=== PATIENT | female | born 1980 | race Caucasian/White ===

== ENCOUNTER 2016-12-12 14:59 | Emergency (ER) | payer OTHER, BC, MEDICAID ==
[~2016-12-12] VITALS: Ht 172.7 cm; Wt 75.3 kg
[~2016-12-12 14:59] MED LIST: ALLEGRA60 MG PO; CEPHALEXIN500 MG PO; CYMBALTA60 MG PO; DULOXETINE60 MG PO; FLEXERIL5 MG PO; FLUOXETINE10 MG; IBUPROFEN800 MG PO; IMODIUM 2MG. CAP2 MG PO; KEFLEX500 M1 PO; LORTAB 5/3251 TAB PO; LORTAB 500 MG-71 TAB PO; NAPROSYN 500MG500 MG PO; NAPROXEN SODIU500 MG PO; PHENERGAN25 M3 PO; PREDNISONE 20MG20 MG PO; TESSALON PERLE100 MG PO; VICODIN 5/500 T1 TAB PO; ZITHROMAX Z PA250 MG PO; ZITHROMAX Z-PA250 M1 PO; ZOFRAN ODT4 MG PO
[2016-12-12] MEDS ORDERED: DULOXETINE60 MG PO (15:31)
--- NOTE | 2016-12-12 15:50 | RADIOLOGY REPORT PS360 ---
HAND-RT 3 VIEWS HISTORY: Pain following injury CAUGHT IN A LADDER ORDERING PHYSICIAN: ANDRE WRIGHT APRN PATIENT AGE: 36 years COMPARISON: None FINDINGS: There is a nondisplaced transverse fracture involving the proximal aspect of the distal phalanx of the fifth finger with no significant angulation. Otherwise negative. IMPRESSION: Nondisplaced fracture distal phalanx fifth finger
[2016-12-12] MEDS ORDERED: IBUPROFEN800 MG PO (16:42)
--- NOTE | 2016-12-12 16:46 | Urgent Treatment Center Report ---
History of Present Issue Date/Time Seen by Provider 12/12/16 1635 Visit Reason Pt arrived:Walked Presenting Problem:RT PINKY FINGER CAUGHT IN A LADDER. COMPLAINS OF PAIN IN THE TIP OF HER FINGER. BRUISING IS NOTED AND LIMITED ROM IN THE FINGER. Location if Accident:Work Onset of symptoms date/time:12/12/16 or onset unknown for: Have you (or family members/close friends) recently traveled outside the [place]? N If Yes, where/when: Have you had exposure to infectious disease within the past month? TB? Other? Specify: Patient states that she was at work and got the tip of her finger caught in the Ladder. State that she is having pain in the tip of her finger in the first joint.State that she immediately noticed the finger turned blue and began to swell and had pain with movement. States that she felt sick at her stomach and she knew she needed to come and get checked ALLERGIES Coded Allergies: Penicillins (04/01/16) caffeine (04/01/16) codeine (04/01/16) Home Medications Reported Medications DULOXETINE HCL (Duloxetine) 60 MG PO QHS #30 History Medical History General CAD? No Angina: No [place]: No Hypertension? No Hyperlipidemia? No CHF? No DVT? No PE? No COPD? No Asthma? No Anemia? Yes GERD? No Gastric ulcers? No GI Bleed? No Hernia? No Thyroid Problems? No Hypothyroidism? No CVA? No Seizures? No Diabetes? No Insulin Dependent: No Insulin Pump: No Home FSBS? No Renal Insuffiency? No UTI? Yes Stones? Yes BPH? No GB Disease: No Nephritic Syndrome? No Asplenia? No Hepatitis? No Sickle Cell Disease? No Arthritis? Yes Migraines? No Cataracts? No Glaucoma? No MRSA? No HIV? No TB? No Anxiety? No Depression? No Cancer? No More? No Immunization HX DT/Tetanus 07/06/11 Flu NEVER Pneumonia NEVER Surgical Hx Previous Surgery?Y EXCISION RT BREAST MASSy EXCISION LT NECK GLAND D&C X 2 Tubal Ligation STITCHES TO UPPER LIP bartholin cyst BOTH SIDES KIDNEY STONE Family History Family HX Diabetes No CAD Yes Hypertension Yes Hyperlipidemia Yes Cancer Yes TB No Social History Smoking Hx Smoker: Current Every Day Smoker Tobacco: Yes Type Cigarettes Packs/day < 1 Pack Alcohol Alcohol: No Review of Systems All Other Systems Reviewed and Negative Comment Pain swelling and bruising in tip of right pinky finger after getting it caught in ladder at work Physical Exam Vital Signs Vital Signs Date Time Temp Pulse Resp B/P Pulse O2 O2 Flow FiO2 Ox Delivery Rate 12/12 1528 98.0 89 18 111/65 98 General Appearance normal appearance, WD/WN, no apparent distress, mild distress Respiratory Status Yes: trachea midline, chest symmetrical, non tender chest. No: respiratory distress. 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 No Results/Orders Current Medication Orders Sig/Ankit Start time Last Medication Dose Route Stop Time Status Admin Ibuprofen 800 MG ONCE ONE 12/12 1645 AC 12/12 PO 12/12 1646 1633 Ibuprofen 0 .STK-MED ONE 12/12 1630 DC PO Orders Procedure Date/time Status STABILIZE JOINT 12/12 1639 Active XRAY/CT/US XRAY/CT/US XR interpretation by discussed w/radiologist Xray Results Fracture tip of fifth digit Departure Departure Time of Disposition 1639 Disposition DC Home or Self Care(routine) Clinical Impression Primary Impression: Finger fracture Qualifiers: Encounter type: initial encounter Finger: little finger Fracture type: closed Phalanx: distal Fracture alignment: nondisplaced Laterality: right Qualified Code: S62.666A - Nondisplaced fracture of distal phalanx of right little finger, initial encounter for closed fracture Condition STABLE Referrals Shabbir Bee MD (Family): Tomorrow-Call Office Call office for appointment and follow up visit for evaluation and referral to Orthopedics after seen by family doctor Patient Instructions DI for Finger Fracture, Finger Fracture Additional Instructions *RICE, Rest the extremity, Ice 15-20 minutes 3-4 times daily, Compress- wear the everton wrap as discussed as much as possible to help reduce swelling and pain, Elevate the extremity when at rest *Everton wrap is for support and help control swelling, use it except in the shower. Be sure that is not to tight but not to loose either *Elevate when resting *Ibuprofen 600-800mg every 6-8 hours as needed for pain an inflammation. If need something more can take Tylenol in between doses of Ibuprofen to help Immediately follow up for new or worsening of symptoms, or no noticeable improvement over the next 3-[address] Follow up with Dr Bee for Referral to Orthopedics if needed Return if needed Discharge Counseling Counseled pt/family regarding diagnosis, test results, medications/RX, home care, follow up needs Prescriptions Current Visit Scripts Ibuprofen (Ibuprofen 800MG) 800 MG PO QIDP PRN pain #30 TAB at 8834
[2016-12-12 17:00] VITALS: BP 111/65
== END 2016-12-12 17:06 | disposition home or self-care (01) ==
LOC: UTC 14:59
PROC: 2W3JX1Z Immobilization of Right Finger using Splint (ICD-10-PCS; principal; 2016-12-12)
DX: S62.666A Nondisplaced fracture of distal phalanx of right little finger, initial encounter for closed fracture (principal); W23.0XXA Caught, crushed, jammed, or pinched between moving objects, initial encounter; Y92.69 Other specified industrial and construction area as the place of occurrence of the external cause; Z72.0 Tobacco use

== ENCOUNTER 2017-01-06 12:05 | Emergency (ER) | payer BC, MEDICAID ==
[~2017-01-06] VITALS: Ht 172.7 cm; Wt 74.8 kg
--- OUTSIDE RECORDS SUMMARY | 2017-01-06 12:13 | External Medical Summary Rpt | CCD ---
Author Author , KELLEE GOODSON Address Unknown Phone [email or web address] Care Team Providers Care Beadworker Name Role Phone [facility] Unavailable [email or web address] ENZO ALANIZ MD, Unavailable Unavailable ENZO ALANIZ MD [facility] Unavailable Unavailable INC, [facility] PURNIMA FELTON Unavailable Unavailable JYANE GODOY Unavailable Unavailable [facility], Unavailable Unavailable PLL[facility], [facility] SOTINGEANU, Unavailable Unavailable S[facility] Purpose Continuity of Care Document - 06-29-2012 through 2016 Problems Code Diagnosis DOS Provider Status [id number] SPONDYLOSIS 08-06-2016 [facility] W/O ORTHOPAEDIC MYELOPATH/R S [facility] ADICULPATHY LS RGN M533 SACROCOCCYG 08-06-2016 [facility] EAL ORTHOPAEDIC DISORDERS S [facility] NEC M5416 RADICULOPAT 08-06-2016 [facility] HY LUMBAR ORTHOPAEDIC REGION S [facility] M545 LOW BACK 04-17-2016 [facility] PAIN ORTHOPAEDIC S PSC E860 DEHYDRATION 04-01-2016 [facility] K529 NONINFECTIV 04-01-2016 [facility] IT[facility] & COLITIS UNS Z720 TOBACCO USE 04-01-2016 [facility] INC 461.9 461.9 ACUTE 06-29-2012 [place] SINUSITIS [facility] 477.8 477.8 06-29-2012 [place] ALLERGIC [facility] NEC E86.0 DEHYDRATION K52.9 NONINFECTIV E GASTROENTER ITIS AND COLITIS, UNSPECIFIED N20.0 CALCULUS OF KIDNEY R07.89 OTHER CHEST PAIN R20.2 PARESTHESIA OF SKIN S00.93XA CONTUSION OF UNSPECIFIED PART OF HEAD, INITIAL ENCOUNTER S86.009A UNSP INJURY OF UNSPECIFIED ACHILLES TENDON, INIT ENCNTR W19.XXXA UNSPECIFIED FALL, INITIAL ENCOUNTER Allergies, Adverse Reactions, Alerts Type Drug Allergy Propensity to adverse reactions to drug Adverse Reaction to Substance Substance Reaction Severity Penicillin I-RASH, ABDOMINAL Intermediate CRAMPING Codeine NA-HALLUCINATIONS Severe Caffeine "PARALYZES ME" Severe Medications Na ND Rx Da Fi Fi Am Da Di Ph RX Ph St me C No te ll ll ou ys ag ar # ys at rm s nt no ma ic us Or Da si cy ia de te s n re d DU 57 08 09 30 30 00 EA Ac LO 23 -2 -[address] ti XE 70 8- 2- 00 00 SI ve TI 01 20 20 49 DE NE 99 17 17 93 9 55 PH HC AR L MA DR CY 60 OF CY MG NT HI CA AN P A IN C ME 50 07 08 14 7 00 EA Ac TR 11 -3 -[address] ti ON 10 - 00 SI ve ID 33 20 20 49 DE AZ 40 17 17 59 OL 2 09 PH E AR 50 MA 0 CY MG OF TA CY BL NT ET HI AN A IN C TR 16 05 06 60 30 00 EA Ac AM 71 -3 -[address] ti AD 40 1- 3- 00 00 SI ve OL 48 20 20 48 DE 10 17 17 95 HC 2 05 PH L AR 50 MA CY MG OF TA CY BL NT ET HI AN A IN C VE 00 03 04 18 18 00 EA Ac NT 17 -2 -[address] ti OL 30 4- 8- 00 00 SI ve IN 68 20 20 48 DE 22 17 17 09 HF 0 97 PH A AR 90 MA CY MC G OF IN CY LINDQUIST NT LE HI R AN A IN C TX 00 03 04 18 6 00 EA Ac OM 60 -2 -[address] ti ET 31 4- 8- 00 00 SI ve LINDQUIST 58 20 20 0 48 DE ZI 65 17 17 09 NE 8 96 PH -D AR M MA SY CY RU P OF CY NT HI AN A IN C TX 65 01 02 20 5 00 EA Ac OM 16 -0 -[address] ti ET 20 9- 3- 00 00 SI ve LINDQUIST 52 20 20 47 DE ZI 11 17 17 16 NE 1 50 PH AR 25 MA CY MG OF TA CY BL NT ET HI AN A IN C Vital Signs 06-29-2012 18:19 Name Value Interpretat Reference Comment ion Range BP 46 mm[Hg] Diastolic BP Systolic 103 mm[Hg] Heart 94 /min Rate/Pulse O2% 98 % Respiratory 20 /min Rate 06-29-2012 17:34 Name Value Interpretat Reference Comment ion Range BP 69 mm[Hg] Diastolic BP Systolic 110 mm[Hg] Heart 84 /min Rate/Pulse O2% 99 % Respiratory 20 /min Rate Results Labs Lab Lab Date Result Refere Interp Status Commen Order Detail nces retati t Range on CHLAMYDIA AND GONORRHEA TESTING (06-29-2014 13:30) Chlamyd NEGATIV complet ia 015 E ed trachom 13:30 atis rRNA [Presen ce] in Unspeci fied specime n by Probe & target amplifi cation method Neisser POSITIV complet ia 015 E ed gonorrh 13:30 oeae rRNA [Presen ce] in Unspeci fied specime n by Probe & target amplifi cation method Treponema pallidum IgG Ab [Presence] in Serum by Immunoassay (06-29-2014 13:30) Trepone NON-MEERA complet ma 015 CTIVE ed pallidu 13:30 m IgG Ab [Presen ce] in Serum by Immunoa ssay CHLAMYDIA AND GONORRHEA TESTING (06-29-2014 13:30) COLLECT E complet OR 015 [facility] ed 13:30 , RN ETHNICI WHITE, complet TY 015 NON-HIS ed 13:30 PANIC KIT 2014-12 complet EXPIRAT 015 -31 ed ION 13:30 DATE SYMPTOM YES complet S 015 ed 13:30 REASON SEX complet FOR 015 PARTNER ed REQUEST 13:30 REFERRA L SPECIME URINE complet N 015 ed SOURCE 13:30 PREGNAN NO complet T 015 ed 13:30 CHART 402-17- complet NUMBER [id number] ed 13:30 Chlamyd Pending complet ia 015 ed trachom 13:30 atis rRNA [Presen ce] in Unspeci fied specime n by Probe & target amplifi cation method Neisser Pending complet ia 015 ed gonorrh 13:30 oeae rRNA [Presen ce] in Unspeci fied specime n by Probe & target amplifi cation method Treponema pallidum IgG Ab [Presence] in Serum by Immunoassay (06-29-2014 13:30) COLLECT E complet OR 015 SORAIDAICHER ed 13:30 , RN ETHNICI WHITE complet TY 015 NON-HIS ed 13:30 PANIC PURPOSE OTHER complet OF 015 ed EXAM 13:30 SPECIME BLOOD complet N 015 ed SOURCE 13:30 CHART 402-17- complet NUMBER [id number] ed 13:30 Trepone Pending complet ma 015 ed pallidu 13:30 m IgG Ab [Presen ce] in Serum by Immunoa ssay Procedures Procedure DOS Code Location Performer [place] NJX 38839 [facility] JAYNE DX/THER 7 SBST ORTHOPAED INTRLMNR ICS PSC LMBR/SAC W/IMG GDN NJX 34453 [facility] JAYNE DX/THER 7 SBST ORTHOPAED INTRLMNR ICS PSC LMBR/SAC W/IMG GDN NJX 65769 [facility] JAYNE DX/THER 7 SBST ORTHOPAED INTRLMNR ICS PSC LMBR/[place] [address] MORGAN GODOY JOINT 7 ARTHRGRPH ORTHOPAED Y&/ANES/S ICS PSC TEROID W/LISETTE MRI 02909 MORGAN FELTON SPINAL 7 CANAL ORTHOPAED LUMBAR ICS PSC W/O CONTRAST MATERIAL MRI 10755 MORGAN WHITMANT PELVIS 7 W/O ORTHOPA[place] [address] [facility] FRANK LIPASE 7 [place] [address] ZAC FRANK INFUSION 7 MEM [facility] THERAPY/P INC INC ROPHYLAXI S /DX 1ST TO 1 HR THERAPEUT 85241 [facility] FRANK IC 7 MEM H[facility] INJECTION INC INC IV PUSH EACH NEW DRUG BLOOD 65917 [facility] FRANK COUNT 7 MEM [facility] COMPLETE INC INC AUTO&AUTO DIFRNTL WBC COMPREHEN 49641 [facility] SIVE 7 MEM H[facility] METABOLIC INC INC [place] [address]Lisa FRANK AMYLASE 7 MEM H[facility] INC INC Encounters Encounter Start End Date Code Location Performer Type Date OFFICE 94245 [facility] 7 7 [place] T VISIT ORTHOPAED 15 IC MINUTES OFFICE 91004 [facility] 7 7 [place] VISIT ORTHOPAED 15 IC MINUTES EMERGENCY 76459 ZAC 7 7 [facility] T VISIT LOW/MODER SEVERITY EMERGENCY 40602 [facility] PHYSICIAN U VISIT S, PLLC HIGH SEVERITY& THREAT [facility] ZAC - 7 7 [facility] OUTPATIEN INC T Emergency JUDY ALANIZ MD (ER) 3 16:56 3 18:20 [facility]
--- OUTSIDE RECORDS SUMMARY | 2017-01-06 12:13 | External Medical Summary Rpt | CCD ---
Author Author , KELLEE GOODSON Address Unknown Phone [email or web address] Care Team Providers Care Senior User Experience Architect Name Role Phone [facility] Unavailable [facility], [facility] Unavailable Unavailable INC, [facility] FELTON, FELTON Unavailable Unavailable JAYNE, JAYNE Unavailable Unavailable [facility], Unavailable Unavailable PLLC, [facility] SOTINGEANU, Unavailable [facility]available [facility] Purpose Continuity of Care Document - 04-01-2016 through 2016 Problems Code Diagnosis DOS Provider Status [id number] SPONDYLOSIS 08-06-2016 [facility] W/O ORTHOPAEDIC MYELOPATH/R S PSC ADICULPATHY LS RGN M533 SACROCOCCYG 08-06-2016 [facility] EAL ORTHOPAEDIC DISORDERS S PSC NEC M5416 RADICULOPAT 08-06-2016 [facility] HY LUMBAR ORTHOPAEDIC REGION S PSC M545 LOW BACK 04-17-2016 [facility] PAIN ORTHOPAEDIC S PSC E860 DEHYDRATION 04-01-2016 [facility] K529 NONINFECTIV 04-01-2016 [facility] PHYSICIANS, GASTROENTER [facility] ITIS & COLITIS UNS Z720 TOBACCO USE 04-01-2016 [facility] INC Medications Na ND Rx Da Fi Fi [...] -[address] ti ON 10 1- - 00 00 SI ve ID 33 20 20 [...] LE HI R AN A IN C KS 00 03 04 18 6 00 EA Ac OM 60 -2 -[address] ti ET 31 4- 8- 00 00 SI ve LINDQUIST 58 20 20 0 48 DE ZI 65 17 17 09 NE 8 96 PH -D AR M MA SY CY RU P OF CY NT HI AN A IN C KS 65 01 02 20 5 00 EA Ac OM 16 -0 -[address] ti ET 20 9- 3- 00 00 SI ve LINDQUIST 52 20 20 47 DE ZI 11 17 17 16 NE 1 50 PH AR 25 MA CY MG OF TA CY BL NT ET HI AN A IN C Procedures Procedure DOS Code [place]X 13030 [facility] JAYNE DX/THER 7 SBST ORTHOPAED INTRLMNR ICS PSC LMBR/SAC W/IMG [place]DN NJX 88563 [facility] JAYNE DX/THER 7 SBST ORTHOPAED INTRLMNR ICS PSC LMBR/SAC W/IMG GDN NJX 79515 MORGAN JAYNE DX/THER 7 SBST ORTHOPAED INTRLMNR ICS PSC LMBR/[place] [address] MORGAN GODOY JOINT 7 ARTHRGRPH ORTHOPAED Y&/ANES/S ICS PSC TEROID W/LISETTE MRI 02765 MORGAN FELTON SPINAL 7 CANAL ORTHOPAED LUMBAR ICS PSC W/O CONTRAST MATERIAL MRI 06389 MORGAN WHITMANT PELVIS 7 W/O ORTHOPAED [place] [address] ZAC FRANK LIPASE 7 [place] [address] ZAC FRANK AMYLASE 7 MEM HOS[facility] INC INC COMPREHEN 05922 ZAC ZAC SIVE 7 MEM HOSP MEM [facility]OS[facility] METABOLIC INC INC PANEL BLOOD 95099 ZAC FRANK COUNT 7 MEM HOSP MEM [facility]OS[facility] COMPLETE INC INC AUTO&[place] [address] ZAC ZAC INFUSION 7 [facility] THERAPY/P INC INC ROPHYLAXI S /DX 1ST TO 1 HR THERAPEUT 00068 ZAC ZAC IC 7 MEM HOSP MEM [facility] INJECTION INC INC IV PUSH EACH NEW DRUG Encounters Encounter Start End Date Code Location Performer Type Date OFFICE 98928 [facility] 7 7 [place] T VISIT ORTHOPAED 15 IC MINUTES OFFICE 88847 [facility] 7 7 [place] T VISIT ORTHOPAED 15 IC MINUTES EMERGENCY 40333 ZAC 7 7 [facility] DEPARTMEN INC T VISIT LOW/MODER SEVERITY EMERGENCY 88353 ADI YOUNGER DEPT 7 7 PHYSICIAN U VISIT S, PLLC HIGH SEVERITY& THREAT [facility] ZAC - 7 7 MEM HOSP OUTPATIEN INC T
--- OUTSIDE RECORDS SUMMARY | 2017-01-06 12:13 | External Medical Summary Rpt | CCD ---
Author Author , KELLEE GOODSON Address Unknown Phone [email or web address] Care Team Providers Care Regenerator Operator Name Role Phone [facility] Un[facility], [facility] Unavailable Unavailable INC, [facility] FELTON, FELTON Unavailable Unavailable JAYNE, JAYNE Unavailable Unavailable [facility], Unavailable Unavailable PLL[facility], [facility] SOT[place], Unavailable Unavailable [facility] Purpose Continuity of Care Document - 04-01-2016 through 2016 Problems Code Diagnosis DOS Provider Status [id number] SPONDYLOSIS 08-06-2016 [facility] MYEL[facility]ATH/R S PSC ADICULPATHY LS RGN M533 SACROCOCCYG 08-06-2016 [facility] EAL [facility]THOP[facility]IC DISORDERS S PSC NEC M5416 RADICULOPAT 08-06-2016 [facility] HY LUMBAR [facility]IC REGION S PSC M545 LOW BACK 04-17-2016 [facility] PAIN [facility] S PSC E860 DEHYDRATION 04-01-2016 [facility] K529 NONINFECTIV 04-01-2016 [facility]I Montoya PHYSICIANS, GASTROENTER [facility] ITIS & COLITIS UNS Z720 TOBACCO USE 04-01-2016 [facility] INC Medications Na ND Rx Da [...] LE HI R AN A IN C NV 00 03 04 18 6 00 EA Ac OM 60 -2 -[address] ti ET 31 4- 8- 00 00 SI ve LINDQUIST 58 20 20 0 48 DE ZI 65 17 17 09 NE 8 96 PH -D AR M MA SY CY RU P OF CY NT HI AN A IN C NV 65 01 02 20 5 00 EA Ac OM 16 -0 -[address] ti ET 20 9- 3- 00 00 SI ve LINDQUIST 52 20 20 47 DE ZI 11 17 17 16 NE 1 50 PH AR 25 MA CY MG OF TA CY BL NT ET HI AN A IN C Procedures Procedure DOS Code Location Performer [place] NJX 79531 [facility] JAYNE DX/THER 7 SBST ORTHOPAED INTRLMNR ICS PSC LMBR/SAC W/IMG [place] NJX 77216 [facility] JAYNE DX/THER 7 SBST ORTHOPAED INTRLMNR ICS PSC LMBR/SAC W/IMG GDN NJX 67224 MORGAN JAYNE DX/THER 7 SBST ORTHOPAED INTRLMNR ICS PSC LMBR/[place] [address] MORGAN GODOY JOINT 7 ARTHRGRPH ORTHOPAED Y&/ANES/S ICS PSC TEROID W/LISETTE MRI 75852 [facility] FELTON SPINAL 7 CANAL ORTHOPAED LUMBAR ICS PSC W/O CONTRAST MATERIAL MRI 25515 MORGAN WHITMANT PELVIS 7 W/O ORTHOPAED [place] [address] [facility] FRANK LIPASE 7 [place] [address] ZAC FRANK AMYLASE 7 MEM HOS[facility] INC INC COMPREHEN 28434 ZAC ZAC SIVE 7 MEM HOSP MEM HOS[facility] METABOLIC INC INC PANEL BLOOD 56802 ZAC FRANK COUNT 7 MEM HOSP MEM HOS[facility] COMPLETE INC INC AUTO&[place] [address] ZAC ZAC INFUSION 7 [facility] THERAPY/P INC INC ROPHYLAXI S /DX 1ST TO 1 HR THERAPEUT 95365 ZAC ZAC IC 7 MEM HOSP [facility]OS[facility] INJECTION INC INC IV PUSH EACH NEW DRUG Encounters Encounter Start End Date Code Location Performer Type Date OFFICE 45723 [facility] 7 7 [place] T VISIT ORTHOPAED 15 IC MINUTES OFFICE 22414 [facility] 7 7 [place] T VISIT ORTHOPAED 15 IC MINUTES EMERGENCY 25633 ZAC 7 7 [facility] DEPARTMEN INC T VISIT LOW/MODER SEVERITY EMERGENCY 60463 [facility] YOUNGER DEPT 7 7 PHYSICIAN U VISIT S, PLLC HIGH SEVERITY& THREAT [facility] ZAC - 7 7 MEM HOS[facility] OUTPATIEN INC T
--- OUTSIDE RECORDS SUMMARY | 2017-01-06 12:13 | External Medical Summary Rpt | CCD ---
Author Author , KELLEE GOODSON Address Unknown Phone [email or web address] Care Team Providers Care Core Man Name Role Phone [facility] Unavailable [facility], [facility] ENZO ALANIZ MD, Unavailable Unavailable ENZO ALANIZ MD [facility] Unavailable Unavailable INC, [facility] PURNIMA FELTON Unavailable Unavailable JAYNE GODOY Unavailable Unavailable [facility], Unavailable Unavailable PLL[facility], [facility] S[facility]E[facility], Unavailable Unavailable [facility] Purpose Continuity of Care Document - 06-29-2012 through 2016 Problems Code Diagnosis DOS Provider Status [id number] SPONDYLOSIS 08-06-2016 [facility] W/O ORTHOPAEDIC MYELOPATH/R S [facility] ADICULPATHY LS RGN M533 SACROCOCCYG 08-06-2016 [facility] EAL ORTHOPAEDIC DISORDERS S [facility] NEC M5416 RADICULOPAT 08-06-2016 [facility] HY LUMBAR ORTHOPAEDIC REGION S [facility] M545 LOW BACK 04-17-2016 [facility] PAIN ORTHOPAEDIC S PSC E860 DEHYDRATION 04-01-2016 [facility] K529 NONINFECTIV 04-01-2016 [facility] E [facility], [facility] IT[facility] & COLITIS UNS Z720 TOBACCO USE 04-01-2016 [facility] INC 461.9 461.9 ACUTE 06-29-2012 [place] SINUSITIS [facility] 477.8 477.8 06-29-2012 [place] ALLERGIC [facility] NEC E86.0 DEHYDRATION K52.9 NONINFECTIV E GASTROENTER [...] (06-29-2014 13:30) COLLECT E complet OR 015 [facility] 13[facility]30 , RN ETHNICI WHITE, complet [...] Procedure DOS Code [place]X 379[address] [facility] JAYNE DX/THER 7 SBST ORTHOPAED INTRLMNR ICS PSC LMBR/SAC W/IMG GDN NJX 38650 [facility] JAYNE DX/THER 7 SBST ORTHOPAED INTRLMNR ICS PSC LMBR/SAC W/IMG GDN NJX 05529 [facility] JAYNE DX/THER 7 SBST ORTHOPAED INTRLMNR ICS PSC LMBR/S[place] [address] MORGAN GODOY JOINT 7 ARTHRGRPH ORTHOPAED Y&/ANES/S ICS PSC TEROID W/LISETTE MRI 25138 MORGAN FELTON SPINAL 7 CANAL ORTHOPAED LUMBAR ICS PSC W/O CONTRAST MATERIAL MRI 76163 MORGAN WHITMANT PELVIS 7 W/O ORTHOPAED [place] [address] ZAC FRANK LIPASE 7 [place] [address] ZAC FRANK INFUSION 7 [facility] H[facility] THERAPY/P INC INC ROPHYLAXI S /DX 1ST TO 1 HR THERAPEUT 26757 ZAC FRANK IC 7 MEM HOSP [facility] INJECTION INC INC IV PUSH EACH NEW DRUG BLOOD 40624 ZAC FRANK COUNT 7 MEM H[facility] COMPLETE INC INC AUTO&AUTO DIFRNTL WBC COMPREHEN 20157 [facility] FRANK SIVE 7 MEM H[facility] METABOLIC INC [place] [address]Lisa FRANK AMYLASE 7 MEM HOSP [facility] INC INC Encounters Encounter Start End Date Code Location Performer Type Date OFFICE 01932 [facility] 7 7 [place] T VISIT ORTHOPAED 15 IC MINUTES OFFICE 26092 [facility] 7 7 [place] T VISIT ORTHOPAED 15 IC MINUTES EMERGENCY 13343 ZAC 7 7 [facility] INC T VISIT LOW/MODER SEVERITY EMERGENCY 23750 [facility] 7 PHYSICIAN U VISIT S, PLLC HIGH SEVERITY& THREAT [facility] ZAC - 7 7 [facility] OUTPATIEN INC T Emergency JUDY ALANIZ MD (ER) 3 16:56 3 18:20 [facility]
--- OUTSIDE RECORDS SUMMARY | 2017-01-06 12:14 | External Medical Summary Rpt ---
Author Author KELLEE Ospina, [employer] Organization [employer] Address Unknown Phone Unavailable Results CHLAMYDIA AND GONORRHEA TESTING Observa Value Referen Units Interpr Notes Date tion ce etation Range COLLECT E No No No No Apr 8 OR KEICHER informa informa informa informa 2015 , RN tion in tion in tion in tion in 1:30 PM source source source source data data data data ETHNICI WHITE, No No No No Apr 8 TY NON-HIS informa informa informa informa 2015 PANIC tion in tion in tion in tion in 1:30 PM source source source source data data data data KIT 2014- No No No No Apr 8 EXPIRAT -31 informa informa informa informa 2015 ION tion in tion in tion in tion in 1:30 PM DATE source source source source data data data data SYMPTOM YES No No No No Apr 8 S informa informa informa informa 2015 tion in tion in tion in tion in 1:30 PM source source source source data data data data REASON SEX No No No No Apr 8 FOR PARTNER informa informa informa informa 2015 REQUEST tion in tion in tion in tion in 1:30 PM REFERRA source source source source L data data data data SPECIME URINE No No No No Apr 8 N informa informa informa informa 2015 SOURCE tion in tion in tion in tion in 1:30 PM source source source source data data data data PREGNAN NO No No No No Apr 8 T informa informa informa informa 2015 tion in tion in tion in tion in 1:30 PM source source source source data data data data CHART 402-17- No No No No Apr 8 NUMBER [id number] informa informa informa informa 2015 tion in tion in tion in tion in 1:30 PM source source source source data data data data Chlamyd NEGATIV No No No NEGATIV Apr 8 ia E informa informa informa E 2015 trachom tion in tion in tion in RESULT= 1:30 PM atis source source source WITHIN rRNA data data data NORMAL [Presen ce] in LIMITSP Unspeci OSITIVE fied specime RESULT= n by Probe & ABNORMA target LEQUIVO SAMANTHA amplifi RESULT= cation method INDETER MINATEU NSATISF ACTORY RESULT= INVALID Neisser POSITIV No No No NEGATIV Apr 8 ia E informa informa informa E 2015 gonorrh tion in tion in tion in RESULT= 1:30 PM oeae source source source WITHIN rRNA data data data NORMAL [Presen ce] in LIMITSP Unspeci OSITIVE fied specime RESULT= n by Probe & ABNORMA target LEQUIVO SAMANTHA amplifi RESULT= cation method INDETER MINATEU NSATISF ACTORY RESULT= INVALID THE APTIMA COMBO 2 ASSAY IS NOT INTENDE D FOR THE EVALUAT ION OF SUSPECT EDSEXUA L ABUSE OR FOR OTHER MEDICO- LEGAL INDICAT IONS. FOR THOSE PATIENT S FORWHOM A FALSE POSITIV E RESULT MAY HAVE ADVERSE PSYCHO- SOCIAL IMPACT, [facility] MM[facility] RETESTI NG.\.br \This report contain s patient informa tion that must be protect ed in accorda nce with the Health Insuran ce Portabi lity and Account ability Act. Treponema pallidum IgG Ab [Presence] in Serum by Immunoassay Observa Value Referen Units Interpr Notes Date tion ce etation Range COLLECT E No No No No Apr 8 OR KEICHER informa informa informa informa 2015 , RN tion in tion in tion in tion in 1:30 PM source source source source data data data data ETHNICI WHITE No No No No Apr 8 TY NON-HIS informa informa informa informa 2015 PANIC tion in tion in tion in tion in 1:30 PM source source source source data data data data PURPOSE OTHER No No No No Apr 8 OF informa informa informa informa 2015 EXAM tion in tion in tion in tion in 1:30 PM source source source source data data data data SPECIME BLOOD No No No No Apr 8 N informa informa informa informa 2015 SOURCE tion in tion in tion in tion in 1:30 PM source source source source data data data data CHART 402-17- No No No No Apr 8 NUMBER [id number] informa informa informa informa 2015 tion in tion in tion in tion in 1:30 PM source source source source data data data data Trepone NON-MEERA No No No METHOD Apr [address] informa informa informa OF 2015 pallidu tion in tion in tion in ANALYSI 1:30 PM m IgG source source source S: Ab data data data EIANORM [Presen AL ce] in RANGE: Serum NON-MEERA by CTIVE\. Immunoa br\This ssay report contain s patient informa tion that must be protect ed in accorda nce with the Health Insuran ce Portabi lity and Account ability Act. CHLAMYDIA AND GONORRHEA TESTING Observa Value Referen Units Interpr Notes Date tion ce etation Range COLLECT E No No No No Apr 8 OR KEICHER informa informa informa informa 2015 , RN tion in tion in tion in tion in 1:30 PM source source source source data data data data ETHNICI WHITE, No No No No Apr 8 TY NON-HIS informa informa informa informa 2015 PANIC tion in tion in tion in tion in 1:30 PM source source source source data data data data KIT 2014- No No No No Apr 8 EXPIRAT -31 informa informa informa informa 2015 ION tion in tion in tion in tion in 1:30 PM DATE source source source source data data data data SYMPTOM YES No No No No Apr 8 S informa informa informa informa 2015 tion in tion in tion in tion in 1:30 PM source source source source data data data data REASON SEX No No No No Apr 8 FOR PARTNER informa informa informa informa 2015 REQUEST tion in tion in tion in tion in 1:30 PM REFERRA source source source source L data data data data SPECIME URINE No No No No Apr 8 N informa informa informa informa 2015 SOURCE tion in tion in tion in tion in 1:30 PM source source source source data data data data PREGNAN NO No No No No Apr 8 T informa informa informa informa 2015 tion in tion in tion in tion in 1:30 PM source source source source data data data data CHART 402-17- No No No No Jun 8 NUMBER [id number] informa informa informa informa 2015 tion in tion in tion in tion in 1:30 PM source source source source data data data data Chlamyd Pending No No No No Jun 8 ia informa informa informa informa 2015 trachom tion in tion in tion in tion in 1:30 PM atis source source source source rRNA data data data data [Presen ce] in Unspeci fied specime n by Probe & target amplifi cation method Neisser Pending No No No \.brJun 29 ia informa informa informa is 2015 gonorrh tion in tion in tion in report 1:30 PM oeae source source source contain rRNA data data data s [Presen patient ce] in Unspeci informa fied tion specime that n by must be Probe & target protect ed in amplifi accorda cation nce method with the Health Insuran ce Portabi lity and Account ability Act. Treponema pallidum IgG Ab [Presence] in Serum by Immunoassay Observa Value Referen Units Interpr Notes Date tion ce etation Range COLLECT E No No No No Jun 8 OR KEICHER informa informa informa informa 2015 , RN tion in tion in tion in tion in 1:30 PM source source source source data data data data ETHNICI WHITE No No No No Jun 8 TY NON-HIS informa informa informa informa 2015 PANIC tion in tion in tion in tion in 1:30 PM source source source source data data data data PURPOSE OTHER No No No No Jun 8 OF informa informa informa informa 2015 EXAM tion in tion in tion in tion in 1:30 PM source source source source data data data data SPECIME BLOOD No No No No Jun 8 N informa informa informa informa 2015 SOURCE tion in tion in tion in tion in 1:30 PM source source source source data data data data CHART 402-17- No No No No Jun 8 NUMBER [id number] informa informa informa informa 2015 tion in tion in tion in tion in 1:30 PM source source source source data data data data Trepone Pending No No No \.brJun 29 ma informa informa informa is 2015 pallidu tion in tion in effie in report 1:30 PM m IgG source source source contain Ab data data data s [Presen patient ce] in Serum informa by effie Cross that ssay must be protect ed in accorda nce with the Health Insuran ce Portabi lity and Account ability Act.
--- OUTSIDE RECORDS SUMMARY | 2017-01-06 12:14 | External Medical Summary Rpt | CCD ---
Author Author , KELLEE GOODSON Address Unknown Phone [email or web address] Immunization Name Date Rout CVX Reac Dose Comm Prov Is Faci e tion ent ider Refu lity Give sed n Tdap 11-0 115 999 Hist H149 No H149 , 8-20 oric Adso 07 al rbed Info rmat ion - Sour ce Unsp ecif ied Td 04-0 9 999 Hist H149 No H149 (priscilla 1-19 oric lt), 96 al Info adso rmat rbed ion - Sour ce Unsp ecif ied
--- OUTSIDE RECORDS SUMMARY | 2017-01-06 12:14 | External Medical Summary Rpt ---
[...] MAY HAVE ADVERSE PSYCHO- SOCIAL IMPACT, [facility] MMENDS RETESTI NG.\.br \This report [...]
--- OUTSIDE RECORDS SUMMARY | 2017-01-06 12:14 | External Medical Summary Rpt | CCD ---
Author Author , KELLEE GOODSON Address Unknown Phone [email or web address] Immunization Name Date Rout CVX Reac Dose [...]
[2017-01-06] MEDS ORDERED: KEFLEX 500MG.500 MG PO (13:04)
[2017-01-06] MEDS ORDERED: MUPIROCIN 2% O1 INC1 TP (13:04)
--- NOTE | 2017-01-06 13:05 | Urgent Treatment Center Report ---
History of Present Issue Date/Time Seen by Provider 01/06/17 1254 Visit Reason Pt arrived:Walked Presenting Problem:PT STATES SHE DRY SHAVED HER LEGS 1.5 MONTHS AGO. SHE HAS BURNING ON BOTH LOWER EXTREMTIES AND REDNESS THAT SHE STATESHAS GOTTEN WORSE. TRIED SEVERAL OTC MEDICATIONS. Location if Accident: Onset of symptoms date/time:/ or onset unknown for:MEDICAL HX UNKNOWN Have you (or family members/close friends) recently traveled outside the [place]? N If Yes, where/when: Have you had exposure to infectious disease within the past month? TB? Other? Specify: c/o rash tiburcio legs starting after dry shaving 1-2 months ago, no improvement w/ son's triamcinolone cream, various different lotions, bath bombs, leg oils "all thinking I was too dry" but some improvement w/ hydrocortisone but then "flared " and got worse again. Denies fever, malaise. No noticeable drainage. No generalized redness "just each dot that is red". Itchy at times. Burning last 2- 3 days. Source patient Exam Limitations no limitations ALLERGIES Coded Allergies: Penicillins (04/01/16) caffeine (04/01/16) codeine (04/01/16) Home Medications Active Scripts Ibuprofen (Ibuprofen 800MG) 800 MG PO QIDP PRN pain #30 TAB Prov: 12/12/16 Reported Medications DULOXETINE HCL (Duloxetine) 60 MG PO QHS #30 History Medical History General CAD? No Angina: No KS: No Hypertension? No Hyperlipidemia? No CHF? No DVT? No PE? No COPD? No Asthma? No Anemia? Yes GERD? No Gastric ulcers? No GI Bleed? No Hernia? No Thyroid Problems? No Hypothyroidism? No CVA? No Seizures? No Diabetes? No Insulin Dependent: No Insulin Pump: No Home FSBS? No Renal Insuffiency? No UTI? Yes Stones? Yes BPH? No GB Disease: No Nephritic Syndrome? No Asplenia? No Hepatitis? No Sickle Cell Disease? No Arthritis? Yes Migraines? No Cataracts? No Glaucoma? No MRSA? No HIV? No TB? No Anxiety? No Depression? No Cancer? No More? No Immunization HX DT/Tetanus 07/06/11 Flu NEVER Pneumonia NEVER Surgical Hx Previous Surgery?Y EXCISION RT BREAST MASSy EXCISION LT NECK GLAND D&C X 2 Tubal Ligation STITCHES TO UPPER LIP bartholin cyst BOTH SIDES KIDNEY STONE Family History Family HX Diabetes No CAD Yes Hypertension Yes Hyperlipidemia Yes Cancer Yes TB No Social History Smoking Hx Smoker: Current Every Day Smoker Tobacco: Yes Type Cigarettes Packs/day < 1 Pack Alcohol Alcohol: No Review of Systems All Other Systems Reviewed and Negative Constitutional see HPI Musculoskeletal denies joint pain, denies muscle pain Skin see HPI Psychiatric/Neurological denies numbness, denies tingling Physical Exam Vital Signs Vital Signs Date Time Temp Pulse Resp B/P Pulse O2 O2 Flow FiO2 Ox Delivery Rate 01/06 1306 98.4 68 18 104/72 98 01/06 1217 98.4 68 18 104/72 98 General Appearance normal appearance, no apparent distress Respiratory Status No: respiratory distress. Cardiovascular no peripheral edema Neurologic alert Skin folliculitis bilateral lower legs, primarily anteriorly; no evidence of generalized cellulitis just erythema of each individual follicle. No drainage. Tender. No swelling or warmth Lymphatic no adenopathy Medical Decision Making LABS/Meds/Orders Pt receiving controlled substance in ED? No Departure Departure Time of Disposition 1300 Disposition DC Home or Self Care(routine) Clinical Impression Primary Impression: Folliculitis Condition STABLE Referrals Rohit KRAMER,Shabbir (Family) Immediately for new, worsening or persistant symptoms despite antibiotics. Patient Instructions DI for Folliculitis Additional Instructions clean w/ mild soap and water avoid shaving until healed antibiotic ointment to the worst areas start antibiotics by mouth immediately monitor closely. hydrocortisone cream as needed is still ok Discharge Counseling Counseled pt/family regarding diagnosis, medications/RX, home care, follow up needs Prescriptions Current Visit Scripts Mupirocin 2% (Mupirocin 2% Oint) 1 GIUSEPPE TP BID #2 TUBE Ref 2 CEPHALEXIN (Keflex 500MG Capsule) 500 MG PO QID #40 CAP at 2117
[2017-01-06 13:06] VITALS: BP 104/72
== END 2017-01-06 13:06 | disposition home or self-care (01) ==
LOC: UTC 12:05
DX: L73.9 Follicular disorder, unspecified (principal); F17.210 Nicotine dependence, cigarettes, uncomplicated; Z79.899 Other long term (current) drug therapy

== ENCOUNTER 2017-01-15 10:56 | Emergency (ER) | payer BC, MEDICAID ==
[~2017-01-15] VITALS: Ht 172.7 cm; Wt 72.6 kg
[~2017-01-15 10:56] MED LIST changes: +KEFLEX 500MG.500 MG PO; +MUPIROCIN 2% O1 INC1 TP
--- OUTSIDE RECORDS SUMMARY | 2017-01-15 11:46 | External Medical Summary Rpt ---
[...] MAY HAVE ADVERSE PSYCHO- SOCIAL IMPACT, [facility] RETESTI NG.\.br \This report contain s [...]
--- OUTSIDE RECORDS SUMMARY | 2017-01-15 11:46 | External Medical Summary Rpt | CCD ---
Author Author , KELLEE GOODSON Address Unknown Phone [email or web address] Care Team Providers Care Game Master Name Role Phone [facility] Unavailable Unavailable [facility], [facility] Unavailable Unavailable INC, [facility] FEL[facility], [facility] Unavailable Unavailable JAYNE, JAYNE Unavailable Unavailable [facility], Unavailable [facility]available [facility], [facility] SOTINGEANU, Unavailable [facility]available [facility] Purpose Continuity of Care Document - 04-01-2016 through 2016 Problems Code Diagnosis DOS Provider Status [id number] SPONDYLOSIS 08-06-2016 [facility] W/O ORTHOPAEDIC MYELOPATH/R S PSC ADICULPATHY LS RGN M533 SACROCOCCYG 08-06-2016 [facility] EAL ORTHOPAEDIC DISORDERS S PSC NEC M5416 RADICULOPAT 08-06-2016 [facility] HY LUMBAR ORTHOPAEDIC REGION S PSC M545 LOW BACK 04-17-2016 [facility] PAIN ORTHOPAEDIC S PSC E860 DEHYDRATION 04-01-2016 [facility] K529 NONINFECTIV 04-01-2016 [facility], GASTROENTER [facility] ITIS & COLITIS UNS Z720 TOBACCO USE 04-01-2016 [facility] INC Medications Na ND Rx [...] .[address] ti ON 10 1- 00 00 SI ve ID 33 20 [...] LE HI R AN A IN C AZ 00 03 04 18 6 00 EA Ac OM 60 -2 -[address] ti ET 31 4- 8- 00 00 SI ve LINDQUIST 58 20 20 0 48 DE ZI 65 17 17 09 NE 8 96 PH -D AR M MA SY CY RU P OF CY NT HI AN A IN C AZ 65 01 02 20 5 00 EA Ac OM 16 -0 -[address] ti ET 20 9- 3- 00 00 SI ve LINDQUIST 52 20 20 47 DE ZI 11 17 17 16 NE 1 50 PH AR 25 MA CY MG OF TA CY BL NT ET HI AN A IN C Procedures Procedure DOS Code [place] Performer [place] NJX 573[address] [place] JAYNE DX/THER 7 SBST ORTHOPAED INTRLMNR ICS PSC LMBR/SAC W/[place] NJX 49634 [facility] JAYNE DX/THER 7 SBST ORTHOPAED INTRLMNR ICS PSC LMBR/SAC W/IM[place] NJX 27195 MORGAN JAYNE DX/THER 7 SBST ORTHOPAED INTRLMNR ICS PSC LMBR/S[place] [address] MORGAN GODOY JOINT 7 ARTHRGRPH ORTHOPAED Y&/ANES/S ICS PSC TEROID W/LISETTE MRI 84957 MORGAN [facility] SPINAL 7 CANAL ORTHOPAED LUMBAR ICS PSC W/O CONTRAST MATERIAL MRI 53456 MORGAN WHITMANT PELVIS 7 W/O ORTHOPA[place] [address] [facility] FRANK LIPASE 7 [facility] INC INC COMPREHEN 39013 ZAC FRANK SIVE 7 MEM [facility] [place] [address] ZAC FRANK AMYLASE 7 [place] [address] ZAC FRANK INFUSION 7 [facility] THERAPY/P INC INC ROPHYLAXI S /DX 1ST TO 1 HR THERAPEUT 65555 [facility] IC 7 MEM HOS[facility] INJECTION INC INC IV PUSH EACH NEW DRUG BLOOD 33987 [facility]ANK COUNT 7 MEM H[facility] COMPLETE INC INC AUTO&AUTO DIFRNTL WBC Encounters Encounter Start End Date Code Location Performer Type Date OFFICE 42929 [facility] 7 7 IDAHO T VISIT ORTHOPAED 15 IC MINUTES OFFICE 50595 [facility] 7 7 IDAHO T VISIT ORTHOPAED 15 IC MINUTES EMERGENCY 68392 Z[facility] 7 7 [facility] DEPARTMEN INC T VISIT LOW/MODER SEVERITY EMERGENCY 03781 [facility] DEPT 7 7 PHYSICIAN U VISIT S, PLLC HIGH SEVERITY& THREAT [facility] ZAC - 7 7 MEM HOSP OUTPATIEN INC T
--- OUTSIDE RECORDS SUMMARY | 2017-01-15 11:46 | External Medical Summary Rpt | CCD ---
Author Author , KELLEE GOODSON Address Unknown Phone [email or web address] Care Team Providers Care System Operation Superintendent Name Role Phone [facility] Unavailable Unavailable [facility], [facility] ENZO ALANIZ MD, Unavailable Unavailable ENZO ALANIZ MD [facility] Unavailable Unavailable INC, [facility] PURNIMA FELTON Unavailable Unavailable JAYNE GODOY Unavailable Unavailable [facility], [facility]available [facility], [facility] SOTINGEANU, Unavailable [facility]available [facility] Purpose Continuity of Care Document - 06-29-2012 through 2016 Problems Code Diagnosis DOS Provider Status [id number] SPONDYLOSIS 08-06-2016 [facility] W/O ORTHOPAEDIC MYELOPATH/R S [facility] ADICULPATHY LS RGN M533 SACROCOCCYG 08-06-2016 [facility] EAL ORTHOPAEDIC DISORDERS S [facility] NEC M5416 RADICULOPAT 08-06-2016 [facility] HY LUMBAR ORTHOPAEDIC REGION S [facility] M545 LOW BACK 04-17-2016 [facility] PAIN ORTHOPAEDIC S [facility] E860 DEHYDRATION 04-01-2016 ADI ABEL, [facility] K529 NONINFECTIV 04-01-2016 [facility] Mont[facility] PHYSICIANS, GASTROENTER [facility] ITIS & COLITIS UNS Z720 TOBACCO USE 04-01-2016 [facility] INC 461.9 461.9 ACUTE 06-29-2012 [place] SINUSITIS [facility] 477.8 477.8 06-29-2012 [place] ALLERGIC [facility] NEC Allergies, Adverse Reactions, Alerts Type Drug Allergy [...] ST ti AD 40 1- 3- 00 SI ve OL 48 20 20 48 DE 10 17 17 95 HC 2 05 PH L AR 50 MA CY MG OF TA CY BL NT ET HI AN A IN C VE 00 03 04 18 18 00 EA Ac NT 17 -2 -[address] ti OL 30 4- 8- 00 SI ve IN 68 20 20 48 DE 22 17 17 09 HF 0 97 PH A AR 90 MA CY MC G OF IN CY LINDQUIST NT LE HI R AN A IN C WV 00 03 04 18 6 00 EA Ac OM 60 -2 -[address] ti ET 31 4- 8- 00 00 SI ve LINDQUIST 58 20 20 0 48 DE ZI 65 17 17 09 NE 8 96 PH -D AR M MA SY CY RU P OF CY NT HI AN A IN C WV 65 01 02 20 5 00 EA [...] (06-29-2014 13:30) COLLECT E complet OR 015 [facility] ed 13:30 , RN SARAH WHITE, complet TY 015 NON-HIS ed 13:30 [...] (06-29-2014 13:30) COLLECT E complet OR 015 [facility] ed 13:30 , RN SARAH WHITE complet TY 015 NON-HIS ed 13:30 PANIC PURPOSE OTHER complet OF 015 ed EXAM 13:30 SPECIME BLOOD complet N 015 ed SOURCE 13:30 CHART 402-17- complet NUMBER 015 [id number] ed 13:30 Trepone Pending complet ma 015 ed pallidu 13:30 m IgG Ab [Presen ce] in Serum by Immunoa ssay Procedures Procedure DOS Code Location Performer [place] NJX 02905 [facility] JAYNE DX/THER 7 SBST ORTHOPAED INTRLMNR ICS PSC LMBR/SAC W/[place] NJX 45375 [facility] JAYNE DX/THER 7 SBST ORTHOPAED INTRLMNR ICS PSC LMBR/SAC W/IMG GDN NJX 78940 [facility] JAYNE DX/THER 7 SBST ORTHOPAED INTRLMNR ICS PSC LMBR/[place] [address] MORGAN GODOY JOINT 7 ARTHRGRPH ORTHOPAED Y&/ANES/S ICS PSC TEROID W/LISETTE MRI 20286 MORGAN [facility] SPINAL 7 CANAL ORTHOPAED LUMBAR ICS PSC W/O CONTRAST MATERIAL MRI 43965 MORGAN [facility] PELVIS 7 W/O ORTHOPAED [place] [address] [facility] LIPASE 7 [facility] INC INC COMPREHEN 35252 ZAC FRANK SIVE 7 MEM [facility] [address] [facility] FRANK AMYLASE 7 MEM HOS[facility] MEM [facility]OS[facility] INC INC BLOOD 44336 ZAC FRANK COUNT 7 MEM [facility] COMPLETE INC INC AUTO&[place] [address] [facility]ANK INFUSION 7 MEM H[facility] THERAPY/P INC INC ROPHYLAXI S /DX 1ST TO 1 HR THERAPEUT 92143 [facility] IC 7 [facility] INJECTION INC INC IV PUSH EACH NEW DRUG Encounters Encounter Start End Date Code Location Performer Type Date OFFICE 72257 [facility] [place] V[facility] [facility]TH[facility]ED 15 IC MINUTES OFFICE 13760 [facility] [place] V[facility] [facility] 15 IC MINUTES [facility]OSPITAL [facility] Lemon 7 7 [facility] OUTPATIEN INC T EMERGENCY 24248 Z[facility] 7 7 [facility] DEPARTMEN INC T VISIT LOW/MODER SEVERITY EMERGENCY 79164 [facility] DEPT 7 7 PHYSICIAN U VISIT S, PLLC HIGH SEVERITY& THREAT FUNCJ Emergency JUDY ALANIZ MD (ER) 3 16:56 3 18:20 [facility]
--- OUTSIDE RECORDS SUMMARY | 2017-01-15 11:46 | External Medical Summary Rpt | CCD ---
Author Author , KELLEE GOODSON Address Unknown Phone [email or web address] Immunization Name Date Rout CVX Reac Dose [...]
--- OUTSIDE RECORDS SUMMARY | 2017-01-15 11:46 | External Medical Summary Rpt | CCD ---
Author Author , KELLEE GOODSON Address Unknown Phone [email or web address] Care Team Providers Care Lithographic Press Operator Apprentice Name Role Phone [facility] Unavailable Unavailable [facility], [facility] ENZO ALANIZ MD, Unavailable Unavailable ENZO ALANIZ MD [facility] Unavailable Unavailable INC, [facility] PURNIMA FELTON Unavailable Unavailable JAYNE GODOY Unavailable Unavailable [facility], Unavailable [facility]available [facility], [facility] SOTINGEANU, Unavailable [facility]available [facility] Purpose Continuity of Care Document - 06-29-2012 through 2016 Problems Code Diagnosis DOS Provider Status [id number] SPONDYLOSIS 08-06-2016 [facility] W/O ORTHOPAEDIC MYELOPATH/R S [facility] ADICULPATHY LS RGN M533 SACROCOCCYG 08-06-2016 [facility] EAL ORTHOPAEDIC DISORDERS S [facility] NEC M5416 RADICULOPAT 08-06-2016 [facility] HY LUMBAR ORTHOPAEDIC REGION S [facility] M545 LOW BACK 04-17-2016 [facility] PAIN ORTHOPAEDIC S [facility] E860 DEHYDRATION 04-01-2016 ADI ABEL, [facility] K529 NONINFECTIV 04-01-2016 AD[facility] Montoya PHYSICIANS, GASTROENTER [facility] ITIS & COLITIS UNS Z720 TOBACCO USE 04-01-2016 [facility] INC 461.9 461.9 ACUTE 06-29-2012 [place] SINUSITIS [facility] 477.8 477.8 06-29-2012 [place] ALLERGIC [facility] NEC Allergies, Adverse Reactions, Alerts Type [...] LE HI R AN A IN C ME 00 03 04 18 6 00 EA Ac OM 60 -2 -[address] ti ET 31 4- 8- 00 00 SI ve LINDQUIST 58 20 20 0 48 DE ZI 65 17 17 09 NE 8 96 PH -D AR M MA SY CY RU P OF CY NT HI AN A IN C ME 65 01 02 20 5 00 EA [...] (06-29-2014 13:30) COLLECT E complet OR 015 [facility] ed 13:30 , RN SARAH WHITE, complet [...] Procedure DOS Code [place] Performer [place] NJX 43971 [facility] JAYNE DX/THER 7 SBST ORTHOPAED INTRLMNR ICS PSC LMBR/SAC W/IMG [place]DN NJX 45022 [facility] JAYNE DX/THER 7 [facility] ORTHOPAED INTRLMNR ICS PSC LMBR/SAC W/IMG GDN NJX 71006 [facility] JAYNE DX/THER 7 SBST ORTHOPAED INTRLMNR ICS PSC LM[place] [address] MORGAN GODOY JOINT 7 ARTHRGRPH ORTHOPAED Y&/ANES/S ICS PSC TEROID W/LISETTE MRI 39712 MORGAN FELTON SPINAL 7 CANAL ORTHOPAED LUMBAR ICS PSC W/O CONTRAST MATERIAL MRI 98340 MORGAN FELTON PELVIS 7 W/O ORTHOPA[place] [address] [facility] FRANK LIPASE 7 [facility] INC INC COMPREHEN 42869 ZAC FRANK SIVE 7 [facility] [address] ZAC FRANK AMYLASE 7 [facility] INC INC BLOOD 32258 ZAC FRANK COUNT 7 [facility] COMPLETE INC INC AUTO&[place] [address] [facility] INFUSION 7 [facility] THERAPY/P INC INC ROPHYLAXI S /DX 1ST TO 1 HR THERAPEUT 42738 [facility] FRANK IC 7 [facility] INJECTION INC INC IV PUSH EACH NEW DRUG Encounters Encounter Start End Date Code Location Performer Type Date OFFICE 67163 [facility] 7 7 [place] T VISIT ORTHOPAED 15 IC MINUTES OFFICE 97871 [facility] 7 7 [place] T VISIT ORTHOPAED 15 IC MINUTES HOSPITAL Z[facility] Lemon 7 7 [facility] OUTPATIEN INC T EMERGENCY 18651 [facility] 7 7 [facility] DEPARTMEN INC T VISIT LOW/MODER SEVERITY EMERGENCY 50169 [facility] YOUNGER DEPT 7 7 PHYSICIAN U VISIT S, PLLC HIGH SEVERITY& THREAT F[facility] Emergency JUDY ALANIZ MD (ER) 3 16:56 3 18:20 [facility]
--- OUTSIDE RECORDS SUMMARY | 2017-01-15 11:46 | External Medical Summary Rpt ---
[...] MAY HAVE ADVERSE PSYCHO- SOCIAL IMPACT, [facility] MMENDS RETESTI NG.\.br \This report contain s [...]
--- OUTSIDE RECORDS SUMMARY | 2017-01-15 11:46 | External Medical Summary Rpt | CCD ---
Author Author , KELLEE GOODSON Address Unknown Phone [email or web address] Care Team Providers Care Clam Sorter Name Role Phone [facility] Unavailable Un[facility], [facility] Unavailable Unavailable INC, [facility] FELTON, FELTON Unavailable Unavailable JAYNE, JAYNE Unavailable Unavailable [facility], Unavailable Unavailable [facility], [facility] SOTINGEANU, Unavailable [facility]available [facility] Purpose Continuity of Care Document - 04-01-2016 through 2016 Problems Code Diagnosis DOS Provider Status [id number] SPONDYLOSIS 08-06-2016 [facility] W/O ORTHOPAEDIC MYELOPATH/R S PSC ADICULPATHY LS RGN M533 SACROCOCCYG 08-06-2016 [facility] EAL ORTHOPAEDIC DISORDERS S PSC NEC M5416 RADICULOPAT 08-06-2016 [facility] HY LUMBAR ORTHOPAEDIC REGION S PSC M545 LOW BACK 04-17-2016 [facility] PAIN ORTHOPAEDIC S PSC E860 DEHYDRATION 04-01-2016 [facility] K529 NONINFECTIV 04-01-2016 ADI Montoya PHYSICIANS, GASTROENTER [facility] ITIS & COLITIS UNS Z720 TOBACCO USE 04-01-2016 [facility] INC Medications Na ND Rx [...] LE HI R AN A IN C MI 00 03 04 18 6 00 EA Ac OM 60 -2 -[address] ti ET 31 4- 8- 00 00 SI ve LINDQUIST 58 20 20 0 48 DE ZI 65 17 17 09 NE 8 96 PH -D AR M MA SY CY RU P OF CY NT HI AN A IN C MI 65 01 02 20 5 00 EA Ac OM 16 -0 -[address] ti ET 20 9- 3- 00 00 SI ve LINDQUIST 52 20 20 47 DE ZI 11 17 17 16 NE 1 50 PH AR 25 MA CY MG OF TA CY BL NT ET HI AN A IN C Procedures Procedure DOS Code Location Performer [place] NJX 12867 [place] JAYNE DX/THER 7 SBST ORTHOPAED INTRLMNR ICS PSC LMBR/SAC W/[place] NJX 73379 [facility] JAYNE DX/THER 7 SBST ORTHOPAED INTRLMNR ICS PSC LMBR/SAC W/IMG GDN NJX 16080 MORGAN JAYNE DX/THER 7 SBST ORTHOPAED INTRLMNR ICS PSC LMBR/[place] [address] MORGAN GODOY JOINT 7 ARTHRGRPH ORTHOPAED Y&/ANES/S ICS PSC TEROID W/LISETTE MRI 20483 MORGAN FELTON SPINAL 7 CANAL ORTHOPAED LUMBAR ICS PSC W/O CONTRAST MATERIAL MRI 46296 MORGAN WHITMANT PELVIS 7 W/O ORTHOPAED [place] [address] [facility] FRANK LIPASE 7 [facility] INC INC COMPREHEN 84056 ZAC FRANK SIVE 7 [facility] [place] [address] ZAC FRANK AMYLASE 7 [place] [address] [facility]AC FRANK INFUSION 7 [facility] THERAPY/P INC INC ROPHYLAXI S /DX 1ST TO 1 HR THERAPEUT 12969 [facility] FRANK IC 7 [facility] INJECTION INC INC IV PUSH EACH NEW DRUG BLOOD 42081 [facility] FRANK COUNT 7 [facility] COMPLETE INC INC AUTO&AUTO DIFRNTL WBC Encounters Encounter Start End Date Code Location Performer Type Date OFFICE 91304 [facility] 7 7 [place] T VISIT ORTHOPAED 15 IC MINUTES OFFICE 57577 [facility] 7 [place] T VISIT ORTHOPAED 15 IC MINUTES EMERGENCY 50592 ZAC 7 7 [facility] DEPARTMEN INC T VISIT LOW/MODER SEVERITY EMERGENCY 53298 [facility] YOUNGER DEPT 7 7 PHYSICIAN U VISIT S, PLLC HIGH SEVERITY& THREAT [facility] Z[facility] - 7 7 [facility] OUTPATIEN INC T
--- OUTSIDE RECORDS SUMMARY | 2017-01-15 11:46 | External Medical Summary Rpt | CCD ---
Author Author , KELLEE GOODSON Address Unknown Phone [email or web address] Immunization Name Date Rout CVX Reac Dose [...]
--- NOTE | 2017-01-15 12:11 | Emergency Room Report ---
History of Present Illness Time Seen by MD Harris Presenting Problem in Triage Pt arrived:Walked Presenting Problem:PT STATES THAT SHE FEELS LIKE HER HEART IS BEATING OUT OF HER CHEST, HEAD ACHE, NAUSEA, LIGHTHEADED, DIZZY. PT HAS BEEN TREATED FOR STAPH INFECTION ON HER LEGS WITH STEROIDS AND ANTIBIOTICS. FRIDAY PT SEEN PCP AND WAS TOLD THAT SHE WAS HAVING A REACTION TO THE STEROIDS. PT HASN'T BEEN TAKING CYMBALTA CORRECTLY. 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 N Clinical Suspician of Infection? N Mental Status: 1 - Regular (Normal Baseline) Sepsis Risk:Low Sepsis Risk Have you (or family members/close friends) recently traveled outside the [place]? N If Yes, where/when: Have you had exposure to infectious disease within the past month? N TB? Other? Specify: Patient here for itchy rash to legs and to lower breasts. Very itchy and red last week, and seen at [facility], did better s/p steroid injection, one time dose; also placed on Keflex but stopped taking it because she had nausea. Meanwhile, she stopped taking her Cymbalta and has had some episode of anxiety, feels like her heart is pounding and she gets lightheaded. She started back on her Cymbalta this morning. 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 She also prescribed the patient some Vistaril for the anxiety and itching, but the patient is c/o sleepiness with this medication. ALLERGIES Coded Allergies: Penicillins (04/01/16) caffeine (04/01/16) codeine (04/01/16) Uncoded Allergies: STEROIDS (01/15/17) Home Medications Active Scripts Ibuprofen (Ibuprofen 800MG) 800 MG PO QIDP PRN pain #30 TAB Prov: 12/12/16 Mupirocin 2% (Mupirocin 2% Oint) 1 GIUSEPPE TP BID #2 TUBE Ref 2 Prov: 01/06/17 CEPHALEXIN (Keflex 500MG Capsule) 500 MG PO QID #40 CAP Prov: 01/06/17 Reported Medications DULOXETINE HCL (Duloxetine) 60 MG PO QHS #30 History Medical History General CAD? No Angina: No NM: No Hypertension? No Hyperlipidemia? No CHF? No DVT? No PE? No COPD? No Asthma? No Anemia? Yes GERD? No Gastric ulcers? No GI Bleed? No Hernia? No Thyroid Problems? No Hypothyroidism? No CVA? No Seizures? No Diabetes? No Insulin Dependent: No Insulin Pump: No Home FSBS? No Renal Insuffiency? No End Stage Renal Disease? No UTI? Yes Stones? Yes BPH? No GB Disease: No Nephritic Syndrome? No Asplenia? No Hepatitis? No Sickle Cell Disease? No Arthritis? Yes Migraines? No Cataracts? No Glaucoma? No MRSA? No HIV? No TB? No Anxiety? Yes Depression? No Cancer? No More? 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 Family History Family Hx Diabetes No CAD Yes Hypertension Yes Hyperlipidemia Yes Cancer Yes TB No Social History Smoking Hx Smoker: Current Every Day Smoker Tobacco: Yes Type Cigarettes Packs/day < 1 Pack Alcohol Alcohol: No Review of Systems All Other Systems Reviewed and Negative Skin see HPI Psychiatric/Neurological see HPI Physical Exam Vital Signs Vital Signs Date Time Temp Pulse Resp B/P Pulse O2 O2 Flow FiO2 Ox Delivery Rate 01/15 1102 98.0 88 20 122/76 99 General Appearance normal appearance, WD/WN, no apparent distress Eye Exam - bilateral eye normal exam, bilateral eye PERRL, bilateral eye EOMI Ear, Nose, Throat hearing grossly normal (no edema or rash) Neck normal inspection, non-tender, supple, full range of motion Respiratory Status Yes: trachea midline, chest symmetrical, non tender chest. No: respiratory distress, tender on palpation, use of accessory muscles, pain on inspiration, pain on expiration, productive cough, non productive cough. Lung Sounds bilateral: normal breath sounds, lungs clear. Cardiovascular normal exam, regular rate/rhythm, no peripheral edema, no gallop, no JVD, no murmur, no rub, normal peripheral pulses Extremities non-tender, normal range of motion, normal capillary refill, no calf tenderness, punctate lesions at follicles, papular and blanchable, c/w folliculitis/razor burn; BLE; no streaks; no pus; has similar presentation to [place] [facility] [place] [facility] No satellite lesions. No flaking; neg purpura or petechiae; neg Nikolsky's. 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 No Departure Departure Time of Disposition 1208 Disposition DC Home or Self Care(routine) Clinical Impression Primary Impression: Rash Condition STABLE Referrals Shabbir Bee MD (PCP/Family) Patient Instructions DI for Rash Additional Instructions Tori four distinct areas on one affected area and apply just ONE cream twice daily for two days to each square. Then tori down which ones seem to be helping and use those only. Fill your RX for Bactrim, continue the hydroxyzine/Vistaril but take a half dose to prevent sleepiness, see your nurse practitioner in two to five days for recheck. Recommend continuing your Cymbalta as prescribed and if you ever need to be off the Cymbalta follow your prescriber's instructions for tapering dose due to withdrawal symptoms. Discharge Counseling Counseled pt/family regarding diagnosis, medications/RX, home care, follow up needs ED Critical Care Critical Care No at 1210
--- NOTE | 2017-01-15 12:11 | Emergency Room Report ---
History of Present Illness Time Seen by MD Harris Presenting Problem in Triage Pt arrived:Walked Presenting Problem:PT STATES THAT SHE FEELS LIKE HER HEART IS BEATING OUT OF HER CHEST, HEAD ACHE, NAUSEA, LIGHTHEADED, DIZZY. PT HAS BEEN TREATED FOR STAPH INFECTION ON HER LEGS WITH STEROIDS AND ANTIBIOTICS. FRIDAY PT SEEN PCP AND WAS TOLD THAT SHE WAS HAVING A REACTION TO THE STEROIDS. PT HASN'T BEEN TAKING CYMBALTA CORRECTLY. 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 N Clinical Suspician of Infection? N Mental Status: 1 - Regular (Normal Baseline) Sepsis Risk:Low Sepsis Risk Have you (or family members/close friends) recently traveled outside the [place]? N If Yes, where/when: Have you had exposure to infectious disease within the past month? N TB? Other? Specify: Patient here for itchy rash to legs and to lower breasts. Very itchy and red last week, and seen at [facility], did better s/p steroid injection, one time dose; also placed on Keflex but stopped taking it because she had nausea. Meanwhile, she stopped taking her Cymbalta and has had some episode of anxiety, feels like her heart is pounding and she gets lightheaded. She started back on her Cymbalta this morning. 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 She also prescribed the patient some Vistaril for the anxiety and itching, but the patient is c/o sleepiness with this medication. ALLERGIES Coded Allergies: Penicillins (04/01/16) caffeine (04/01/16) codeine (04/01/16) Uncoded Allergies: STEROIDS (01/15/17) Home Medications Active Scripts Ibuprofen (Ibuprofen 800MG) 800 MG PO QIDP PRN pain #30 TAB Prov: 12/12/16 Mupirocin 2% (Mupirocin 2% Oint) 1 GIUSEPPE TP BID #2 TUBE Ref 2 Prov: 01/06/17 CEPHALEXIN (Keflex 500MG Capsule) 500 MG PO QID #40 CAP Prov: 01/06/17 Reported Medications DULOXETINE HCL (Duloxetine) 60 MG PO QHS #30 History Medical History General CAD? No Angina: No IA: No Hypertension? No Hyperlipidemia? No CHF? No DVT? No PE? No COPD? No Asthma? No Anemia? Yes GERD? No Gastric ulcers? No GI Bleed? No Hernia? No Thyroid Problems? No Hypothyroidism? No CVA? No Seizures? No Diabetes? No Insulin Dependent: No Insulin Pump: No Home FSBS? No Renal Insuffiency? No End Stage Renal Disease? No UTI? Yes Stones? Yes BPH? No GB Disease: No Nephritic Syndrome? No Asplenia? No Hepatitis? No Sickle Cell Disease? No Arthritis? Yes Migraines? No Cataracts? No Glaucoma? No MRSA? No HIV? No TB? No Anxiety? Yes Depression? No Cancer? No More? 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 Family History Family Hx Diabetes No CAD Yes Hypertension Yes Hyperlipidemia Yes Cancer Yes TB No Social History Smoking Hx Smoker: Current Every Day Smoker Tobacco: Yes Type Cigarettes Packs/day < 1 Pack Alcohol Alcohol: No Review of Systems All Other Systems Reviewed and Negative Skin see HPI Psychiatric/Neurological see HPI Physical Exam Vital Signs Vital Signs Date Time Temp Pulse Resp B/P Pulse O2 O2 Flow FiO2 Ox Delivery Rate 01/15 1102 98.0 88 20 122/76 99 General Appearance normal appearance, WD/WN, no apparent distress Eye Exam - bilateral eye normal exam, bilateral eye PERRL, bilateral eye EOMI Ear, Nose, Throat hearing grossly normal (no edema or rash) Neck normal inspection, non-tender, supple, full range of motion Respiratory Status Yes: trachea midline, chest symmetrical, non tender chest. No: respiratory distress, tender on palpation, use of accessory muscles, pain on inspiration, pain on expiration, productive cough, non productive cough. Lung Sounds bilateral: normal breath sounds, lungs clear. Cardiovascular normal exam, regular rate/rhythm, no peripheral edema, no gallop, no JVD, no murmur, no rub, normal peripheral pulses Extremities non-tender, normal range of motion, normal capillary refill, no calf tenderness, punctate lesions at follicles, papular and blanchable, c/w folliculitis/razor burn; BLE; no streaks; no pus; has similar presentation to lower breasts at [facility]. No satellite lesions. No flaking; neg purpura or petechiae; neg Nikolsky's. 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 No Departure Departure Time of Disposition 1208 Disposition DC Home or Self Care(routine) Clinical Impression Primary Impression: Rash Condition STABLE Referrals Shabbir Bee MD (PCP/Family) Patient Instructions DI for Rash Additional Instructions Tori four distinct areas on one affected area and apply just ONE cream twice daily for two days to each square. Then tori down which ones seem to be helping and use those only. Fill your RX for Bactrim, continue the hydroxyzine/Vistaril but take a half dose to prevent sleepiness, see your nurse practitioner in two to five days for recheck. Recommend continuing your Cymbalta as prescribed and if you ever need to be off the Cymbalta follow your prescriber's instructions for tapering dose due to withdrawal symptoms. Discharge Counseling Counseled pt/family regarding diagnosis, medications/RX, home care, follow up needs ED Critical Care Critical Care No at 1210
[2017-01-15 12:24] VITALS: BP 106/62
== END 2017-01-15 12:24 | disposition home or self-care (01) ==
LOC: ER 10:56
DX: R21 Rash and other nonspecific skin eruption (principal); R42 Dizziness and giddiness; R00.0 Tachycardia, unspecified; Z88.0 Allergy status to penicillin; Z88.6 Allergy status to analgesic agent; F17.210 Nicotine dependence, cigarettes, uncomplicated

== ENCOUNTER 2017-01-29 11:14 | Emergency (ER) | payer BC, MEDICAID ==
[~2017-01-29] VITALS: Ht 172.7 cm; Wt 73.0 kg
--- NOTE | 2017-01-29 11:31 | Emergency Room Report ---
History of Present Illness Time Seen by MD Saavedra Presenting Problem in Triage Pt arrived:Walked Presenting Problem:pt presents with multiple complaints. states approximately a month ago that she "dry-shaved" her legs and presented for [facility] for a subsequent skin rash; has been treated for folliculitis, cellulitis and allergic reactions; has seen dr edgar for dermatology who did a biopsy; states it is itchy and is causing her to be physically ill: complains of cp,nausea,dizziness Onset of symptoms date/time:/ or onset unknown for:MEDICAL HX UNKNOWN Treatment Prior to Arrival: SEE TRIAGE NOTE VP ANALYTICS Provided by:PHYSICIAN Sepsis Risk Assessment: Temp: 98.3 B/P: 133/92 MAP: 105 Pulse: 110 Resp: 18 Recent fever? N Clinical Suspician of Infection? N Mental Status: 1 - Regular (Normal Baseline) Sepsis Risk:Low Sepsis Risk Have you (or family members/close friends) recently traveled outside the [place]? N If Yes, where/when: Have you had exposure to infectious disease within the past month? TB? Other? Specify: Comment Patient complains of being ill for a month and a half. She started with a rash on her legs which has now become more generalized. More recently she has also had intermittent fast heart rate, headaches, nausea, and blurry vision. She has been seen at the urgent treatment center here and has seen her primary care provider for times. She has been treated with antibiotics and multiple creams including steroid creams and antibiotic creams as well as moisturizing creams. She has had treatment for scabies. She was given a steroid shot and says that her systemic symptoms were blamed on a reaction to the steroids. She says that the steroids must be out of her system now as she had been 3 weeks ago and does not believe that these symptoms are related to the steroids. She saw a stroke program coordinator on Friday and had a biopsy taken on her LEFT leg. She does not yet know results. She says she has not had any blood work done. States her grandmother keeps telling her that the rash might have caused an infection in her bloodstream. ALLERGIES Coded Allergies: Penicillins (01/29/17) caffeine (01/29/17) codeine (01/29/17) Uncoded Allergies: STEROIDS (01/15/17) Home Medications Active Scripts Ibuprofen (Ibuprofen 800MG) 800 MG PO QIDP PRN pain #30 TAB Prov: 12/12/16 Mupirocin 2% (Mupirocin 2% Oint) 1 GIUSEPPE TP BID #2 TUBE Ref 2 Prov: 01/06/17 CEPHALEXIN (Keflex 500MG Capsule) 500 MG PO QID #40 CAP Prov: 01/06/17 Reported Medications DULOXETINE HCL (Duloxetine) 60 MG PO QHS #30 History Medical History General CAD? No Angina: No [place]: No Hypertension? No Hyperlipidemia? No CHF? No DVT? No PE? No COPD? No Asthma? No Anemia? Yes GERD? No Gastric ulcers? No GI Bleed? No Hernia? No Thyroid Problems? No Hypothyroidism? No CVA? No Seizures? No Diabetes? No Insulin Dependent: No Insulin Pump: No Home FSBS? No Renal Insuffiency? No End Stage Renal Disease? No UTI? Yes Stones? Yes BPH? No GB Disease: No Nephritic Syndrome? No Asplenia? No Hepatitis? No Sickle Cell Disease? No Arthritis? Yes Migraines? No Cataracts? No Glaucoma? No MRSA? No HIV? No TB? No Anxiety? Yes Depression? No Cancer? No More? 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 Family History Family Hx Diabetes No CAD Yes Hypertension Yes Hyperlipidemia Yes Cancer Yes TB No Social History Smoking Hx Smoker: Current Every Day Smoker Tobacco: Yes Type Cigarettes Packs/day < 1 Pack Alcohol Alcohol: No Review of Systems All Other Systems Reviewed and Negative Constitutional see HPI Eyes blurred vision Cardiovascular chest pain, palpitations Gastrointestinal nausea, vomiting Skin rash Psychiatric/Neurological headache Physical Exam Vital Signs Vital Signs Date Time Temp Pulse Resp B/P Pulse O2 O2 Flow FiO2 Ox Delivery Rate 01/29 1243 98.3 110 18 133/92 97 01/29 1121 98.3 110 18 133/92 97 General Appearance appears angry and anxious Eye Exam - bilateral eye normal exam, bilateral eye PERRL, bilateral eye EOMI Ear, Nose, Throat hearing grossly normal, normal ENT inspection Neck normal inspection, non-tender, supple, full range of motion Respiratory Status Yes: trachea midline, chest symmetrical, non tender chest. No: respiratory distress. Lung Sounds bilateral: normal breath sounds, lungs clear. 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 Also some rash to a lesser extenton her chest, back, and arms., sutures LEFT anterior lower leg where a punch biopsy was obtained. Medical Decision Making LABS/Meds/Orders Pt receiving controlled substance in ED? No Results/Orders Laboratory Tests 01/29/17 1125: Creatine Kinase 38, CK-MB (CK-2) Rel Index 1.3, CK and CKMB Interp < 0.5, Troponin I < 0.02, TSH 1.80, Thyroxine (T4) 7.8, ESR 20 01/29/17 1125: Sodium 138, Potassium 3.2 L, Chloride 102, Carbon Dioxide 28, BUN 11, Creatinine 0.8, Estimated Creat Clear 112, Estimated GFR (MDRD) 81, Glucose 93, Calcium 9.2, Total Bilirubin 0.3, AST 18, ALT 32, Alkaline Phosphatase 82, Total Protein 7.8, Albumin 4.1, Globulin 3.7 H, Albumin/Globulin Ratio 1.1, WBC 9.2, RBC 4.75, Hgb 14.1, Hct 42.6, MCV 89.8, RDW 12.7, Plt Count 276, MPV 8.0, Gran % 64.2, Gran # 5.9, Lymphocytes % 26.1, Monocytes % 5.0, Eosinophils % 4.0, Basophils % 0.7, Lymphocytes # 2.4, Monocytes # 0.5, Eosinophils # 0.4, Basophils # 0.1, PUBS MCHC 33.0, MCH 29.6 Current Medication Orders Sig/Ankit Start time Last Medication Dose Route Stop Time Status Admin Potassium Chloride 0 .STK-MED ONE 01/29 1235 DC PO Potassium Chloride 40 MEQ ONCE ONE 01/29 1230 DC 01/29 PO 01/29 1231 1235 Acetaminophen 650 MG ONCE ONE 01/29 1145 DC 01/29 PO 01/29 1146 1146 Ondansetron HCl 4 MG ONCE ONE 01/29 1145 DC 01/29 IV 01/29 1146 1146 Ondansetron HCl 0 .STK-MED ONE 01/29 1143 DC .ROUTE Acetaminophen 0 .STK-MED ONE 01/29 1142 DC PO Orders Procedure Date/time Status THYROID STIMULATING HORMONE 01/29 113 Complete THYROXINE (T4) 01/29 113 Complete SED RATE 01/29 1137 Complete CARDIAC ENZYMES 01/29 113 Complete CBC WITH AUTO DIFF 01/29 113 Complete CHEM 12 PROFILE 01/29 113 Complete CM/EKG CM/EKG Comments EKG interpreted by Pipo Juarez MD: Rhythm: sinus Rate: 90 [place]: normal Ectopy: none Conduction: normal ST Segment Changes: none T Wave Changes: none Q Waves: none No evidence of acute ischemia or injury Departure Departure Disposition DC Home or Self Care(routine) Clinical Impression Primary Impression: Rash Secondary Impressions: Blurred vision Chest pain Headache Qualifiers: Headache type: unspecified Headache chronicity pattern: acute headache Intractability: not intractable Qualified Code: R51 - Headache Hypokalemia Nausea Palpitations Condition STABLE Patient Instructions DI for Chest Pain, DI for Headache, DI for Hypokalemia, DI for Rash Additional Instructions Follow-up biopsy results with stroke program coordinator. ED Critical Care Critical Care No at 1357
--- NOTE | 2017-01-29 11:31 | Emergency Room Report ---
History of Present Illness Time Seen by MD Saavedra Presenting Problem in Triage Pt arrived:Walked Presenting Problem:pt presents with multiple complaints. 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 N Clinical Suspician of Infection? N Mental Status: 1 - Regular (Normal Baseline) Sepsis Risk:Low Sepsis Risk Have you (or family members/close friends) recently traveled outside the [place]? N If Yes, where/when: Have you had exposure to infectious disease within the past month? TB? Other? Specify: Comment Patient complains of being ill for a month and a half. She started with a rash on her legs which has now become more generalized. More recently she has also had intermittent fast heart rate, headaches, nausea, and blurry vision. She has been seen at the urgent treatment center here and has seen her primary care provider for times. She has been treated with antibiotics and multiple creams including steroid creams and antibiotic creams as well as moisturizing creams. She has had treatment for scabies. She was given a steroid shot and says that her systemic symptoms were blamed on a reaction to the steroids. She says that the steroids must be out of her system now as she had been 3 weeks ago and does not believe that these symptoms are related to the steroids. She saw a plate setter on Friday and had a biopsy taken on her LEFT leg. She does not yet know results. She says she has not had any blood work done. States her grandmother keeps telling her that the rash might have caused an infection in her bloodstream. ALLERGIES Coded Allergies: Penicillins (01/29/17) caffeine (01/29/17) codeine (01/29/17) Uncoded Allergies: STEROIDS (01/15/17) Home Medications Active Scripts Ibuprofen (Ibuprofen 800MG) 800 MG PO QIDP PRN pain #30 TAB Prov: 12/12/16 Mupirocin 2% (Mupirocin 2% Oint) 1 GIUSEPPE TP BID #2 TUBE Ref 2 Prov: 01/06/17 CEPHALEXIN (Keflex 500MG Capsule) 500 MG PO QID #40 CAP Prov: 01/06/17 Reported Medications DULOXETINE HCL (Duloxetine) 60 MG PO QHS #30 History Medical History General CAD? No Angina: No [place]: No Hypertension? No Hyperlipidemia? No CHF? No DVT? No PE? No COPD? No Asthma? No Anemia? Yes GERD? No Gastric ulcers? No GI Bleed? No Hernia? No Thyroid Problems? No Hypothyroidism? No CVA? No Seizures? No Diabetes? No Insulin Dependent: No Insulin Pump: No Home FSBS? No Renal Insuffiency? No End Stage Renal Disease? No UTI? Yes Stones? Yes BPH? No GB Disease: No Nephritic Syndrome? No Asplenia? No Hepatitis? No Sickle Cell Disease? No Arthritis? Yes Migraines? No Cataracts? No Glaucoma? No MRSA? No HIV? No TB? No Anxiety? Yes Depression? No Cancer? No More? 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 N/A Family History Family Hx Diabetes No CAD Yes Hypertension Yes Hyperlipidemia Yes Cancer Yes TB No Social History Smoking Hx Smoker: Current Every Day Smoker Tobacco: Yes Type Cigarettes Packs/day < 1 Pack Alcohol Alcohol: No Review of Systems All Other Systems Reviewed and Negative Constitutional see HPI Eyes blurred vision Cardiovascular chest pain, palpitations Gastrointestinal nausea, vomiting Skin rash Psychiatric/Neurological headache Physical Exam Vital Signs Vital Signs Date Time Temp Pulse Resp B/P Pulse O2 O2 Flow FiO2 Ox Delivery Rate 01/29 1243 98.3 110 18 133/92 97 01/29 1121 98.3 110 18 133/92 97 General Appearance appears angry and anxious Eye Exam - bilateral eye normal exam, bilateral eye PERRL, bilateral eye EOMI Ear, Nose, Throat hearing grossly normal, normal ENT inspection Neck normal inspection, non-tender, supple, full range of motion Respiratory Status Yes: trachea midline, chest symmetrical, non tender chest. No: respiratory distress. Lung Sounds bilateral: normal breath sounds, lungs clear. 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 Also some rash to a lesser extenton her chest, back, and arms., sutures LEFT anterior lower leg where a punch biopsy was obtained. Medical Decision Making LABS/Meds/Orders Pt receiving controlled substance in ED? No Results/Orders Laboratory Tests 01/29/17 1125: Creatine Kinase 38, CK-MB (CK-2) Rel Index 1.3, CK and CKMB Interp < 0.5, Troponin I < 0.02, TSH 1.80, Thyroxine (T4) 7.8, ESR 20 01/29/17 1125: Sodium 138, Potassium 3.2 L, Chloride 102, Carbon Dioxide 28, BUN 11, Creatinine 0.8, Estimated Creat Clear 112, Estimated GFR (MDRD) 81, Glucose 93, Calcium 9.2, Total Bilirubin 0.3, AST 18, ALT 32, Alkaline Phosphatase 82, Total Protein 7.8, Albumin 4.1, Globulin 3.7 H, Albumin/Globulin Ratio 1.1, WBC 9.2, RBC 4.75, Hgb 14.1, Hct 42.6, MCV 89.8, RDW 12.7, Plt Count 276, MPV 8.0, Gran % 64.2, Gran # 5.9, Lymphocytes % 26.1, Monocytes % 5.0, Eosinophils % 4.0, Basophils % 0.7, Lymphocytes # 2.4, Monocytes # 0.5, Eosinophils # 0.4, Basophils # 0.1, PUBS MCHC 33.0, MCH 29.6 Current Medication Orders Sig/Ankit Start time Last Medication Dose Route Stop Time Status Admin Potassium Chloride 0 .STK-MED ONE 01/29 1235 DC PO Potassium Chloride 40 MEQ ONCE ONE 01/29 1230 DC 01/29 PO 01/29 1231 1235 Acetaminophen 650 MG ONCE ONE 01/29 1145 DC 01/29 PO 01/29 1146 1146 Ondansetron HCl 4 MG ONCE ONE 01/29 1145 DC 01/29 IV 01/29 1146 1146 Ondansetron HCl 0 .STK-MED ONE 01/29 1143 DC .ROUTE Acetaminophen 0 .STK-MED ONE 01/29 1142 DC PO Orders Procedure Date/time Status THYROID STIMULATING HORMONE 01/29 113 Complete THYROXINE (T4) 01/29 113 Complete SED RATE 01/29 1137 Complete CARDIAC ENZYMES 01/29 113 Complete CBC WITH AUTO DIFF 01/29 113 Complete CHEM 12 PROFILE 01/29 113 Complete CM/EKG CM/EKG Comments EKG interpreted by Pipo Juarez MD: Rhythm: sinus Rate: 90 [place]: normal Ectopy: none Conduction: normal ST Segment Changes: none T Wave Changes: none Q Waves: none No evidence of acute ischemia or injury Departure Departure Disposition DC Home or Self Care(routine) Clinical Impression Primary Impression: Rash Secondary Impressions: Blurred vision Chest pain Headache Qualifiers: Headache type: unspecified Headache chronicity pattern: acute headache Intractability: not intractable Qualified Code: R51 - Headache Hypokalemia Nausea Palpitations Condition STABLE Patient Instructions DI for Chest Pain, DI for Headache, DI for Hypokalemia, DI for Rash Additional Instructions Follow-up biopsy results with plate setter. ED Critical Care Critical Care No at 1357
--- OUTSIDE RECORDS SUMMARY | 2017-01-29 11:44 | External Medical Summary Rpt | CCD ---
Author Author , KELLEE Organization KELLEE Address Unknown Phone [email or web address] Team Providers Care Human Resources Operations Manager Name Role Phone ENZO AALNIZ MD, Unavailable Unavailable ENZO ALANIZ MD Purpose Continuity of Care Document - 06-29-2012 through 2016 Problems Code Diagnosis DOS Provider Status 461.9 461.9 ACUTE 06-29-2012 [place] SINUSITIS [facility] 477.8 477.8 06-29-2012 [place] ALLERGIC [facility] NEC Allergies, Adverse Reactions, Alerts Type Drug Allergy Propensity to adverse reactions to drug Adverse Reaction to Substance Substance Reaction Severity Penicillin I-RASH, ABDOMINAL Intermediate CRAMPING Codeine NA-HALLUCINATIONS Severe Caffeine "PARALYZES ME" Severe Vital Signs 06-29-2012 18:19 Name Value Interpretat [...] (06-29-2014 13:30) COLLECT E complet OR 015 [facility] [place] ed 13:30 , RN SARAH WHITE, complet [...] (06-29-2014 13:30) COLLECT E complet OR 015 [facility] [place] ed 13:30 , RN SARAH WHITE complet TY 015 NON-HIS ed 13:30 PANIC PURPOSE OTHER complet OF 015 ed EXAM 13:30 SPECIME BLOOD complet N 015 ed SOURCE 13:30 CHART [id number]- complet NUMBER 015 [id number] ed 13:30 Trepone Pending complet ma 015 ed pallidu 13:30 m IgG Ab [Presen ce] in Serum by Immunoa ssay Encounters Encounter Start End Date Code Location Performer Type Date Emergency JUDY ALANIZ MD (ER) 3 16:56 3 18:20 [facility]
--- OUTSIDE RECORDS SUMMARY | 2017-01-29 11:44 | External Medical Summary Rpt | CCD ---
Author Author [employer] Organization [employer] Address Unknown Phone Unavailable Purpose Continuity of Care Document - through 2016
--- OUTSIDE RECORDS SUMMARY | 2017-01-29 11:44 | External Medical Summary Rpt | CCD ---
Author Author , KELLEE Organization KELLEE Address Unknown Phone [email or web address] Team Providers Care Keypunch Operators Supervisor Name Role Phone ENZO ALANIZ MD, Unavailable Unavailable ENZO ALANIZ MD Purpose Continuity of Care Document - 06-29-2012 through 2016 Problems Code Diagnosis DOS Provider Status 461.9 461.9 ACUTE 06-29-2012 [place] SINUSITIS [facility] 477.8 477.8 06-29-2012 [place] ALLERGIC [facility] NEC Allergies, Adverse Reactions, Alerts Type Drug [...] (06-29-2014 13:30) COLLECT E complet OR 015 [facility] ed 13:30 , RN SARAH WHITE, complet [...] (06-29-2014 13:30) COLLECT E complet OR 015 [facility] ed 13:30 , RN SARAH WHITE complet [...] ALANIZ MD (ER) 3 16:56 3 18:20 [facility]
[2017-01-29 11:45] LABS: HEMOGLOBIN 14.1 g/dL (12.2-16.2); LYMPH # 2.4 K/mm3 (0.7-4.5); LYMPH % 26.1 % (10-50.0)
--- OUTSIDE RECORDS SUMMARY | 2017-01-29 11:45 | External Medical Summary Rpt | CCD ---
Demographics Preferred Language Occitan Marital Status Unknown Faith Affiliation Unknown Race Unknown Ethnic Group Unknown Author Author , KELLEE GOODSON Address Unknown Phone Immunization Unable to retrieve immunization data due to connection failure with Immunization Registry. Please try again later.
--- OUTSIDE RECORDS SUMMARY | 2017-01-29 11:45 | External Medical Summary Rpt | CCD ---
Demographics Preferred Language Greenlandic Marital Status Unknown Episcopalian Affiliation Unknown Race Unknown Ethnic Group Unknown Author Author , KELLEE GOODSON Address Unknown Phone Immunization Unable to retrieve immunization data due to connection failure with Immunization Registry. Please try again later.
--- OUTSIDE RECORDS SUMMARY | 2017-01-29 11:46 | External Medical Summary Rpt ---
[...] MAY HAVE ADVERSE PSYCHO- SOCIAL IMPACT, [facility].\.br \This report contain s [...]
--- OUTSIDE RECORDS SUMMARY | 2017-01-29 11:46 | External Medical Summary Rpt ---
[...] MAY HAVE ADVERSE PSYCHO- SOCIAL IMPACT, [facility].\.br \This report contain [...]
[2017-01-29 12:43] VITALS: BP 133/92
== END 2017-01-29 12:44 | disposition home or self-care (01) ==
LOC: ER 11:14
PROVIDERS: Emergency Medicine
DX: R51 Headache (principal); R07.9 Chest pain, unspecified; H53.8 Other visual disturbances; R00.2 Palpitations; E87.6 Hypokalemia; F17.210 Nicotine dependence, cigarettes, uncomplicated; D64.9 Anemia, unspecified; Z88.0 Allergy status to penicillin
CPT/HCPCS: J2405